=== PATIENT | male | born 1945 | race Caucasian/White ===

== ENCOUNTER → 2021-05-31 | Outpatient (CLI) | payer OTHER | END | disposition home or self-care (01) | LOC: LAB SHORT 17:47 → LAB 17:47 | DX: Z11.3 Encounter for screening for infections with a predominantly sexual mode of transmission (principal) | CPT/HCPCS: 86592 ==

== ENCOUNTER 2025-07-28 01:58 | Emergency (ER) | payer OTHER ==
[~2025-07-28] VITALS: Ht 180.3 cm; Wt 68.0 kg
[2025-07-28 03:36] LABS: Calcium, Ionized (POC) 1.10 mmol/L (1.10-1.46); Chloride (POC) 113 mmol/L (98-108); Creatinine (POC) 2.9 mg/dL (0.8-1.3); Glucose (ISTAT POC) 189 mg/dL (70-99); Hematocrit (POC) 28.0 % (41.0-53.0); Hemoglobin (POC) 9.5 g/dL (13.5-17.5); Potassium (POC) 5.2 mmol/L (3.5-5.5); Sodium (POC) 141 mmol/L (135-148); Total CO2 (POC) 14 mmol/L (21-32)
[2025-07-28] MEDS ORDERED: EPINEPhrine HCl 0.1 MG/ML STE Water 10ML SYR IV ONE (18:28)
[2025-07-28] MEDS ORDERED: Sodium Bicarb 8.4% 50 mEq Syringe IV ONE (18:28)
[2025-07-28] MEDS ORDERED: Magnesium Sulfate 500 MG / ML 2ML Vial IV ONE (18:28)
[2025-07-28] MEDS ORDERED: EpiNEPhrine 1 MG/1 ML 1ML Vial IV ONE (18:28)
== END 2025-07-28 05:20 ==
LOC: ER 01:58
PROVIDERS: Emergency Medicine
DX: I46.9 Cardiac arrest, cause unspecified (principal); Z59.89 Other problems related to housing and economic circumstances
CPT/HCPCS: 80047; 85014; 92950; 99285-25; J0169; J0171; J3475